=== PATIENT | female | born 1970 | race American Indian/Alaskan Native ===

== ENCOUNTER 2016-09-27 18:33 | Observation (INO) | payer OTHER ==
[2016-09-27] MEDS ORDERED: Aspirin 81 MG Tab.Chew PO ONE (18:40)
--- NOTE | 2016-09-27 19:01 | EDM.PDOC ---
ED HPI GENERAL MEDICAL PROBLEM - General Chief Complaint: Chest Pain Stated Complaint: CHEST PAIN Time Seen by Provider: 09/27/16 18:57 - History of Present Illness INITIAL COMMENTS - FREE TEXT/NARRATIVE: HISTORY AND PHYSICAL: History of present illness: The [id number] white female presents with chest pain he said approximately 3 PM the 2 components one is sharp it was tightness there's been no clear associated shortness breath palpitations nausea, diaphoresis or other concern she denies any known cardiac history she does smoke 3-6 cigarettes per day she denies drug abuse denies any compelling family history Review of systems: As per history of present illness and below otherwise all systems reviewed and negative. Past medical history: As per history of present illness and as reviewed below otherwise noncontributory. Surgical history: As per history of present illness and as reviewed below otherwise noncontributory. Social history: No reported history of drug or alcohol abuse. Family history: As per history of present illness and as reviewed below otherwise noncontributory. Physical exam: HEENT: Atraumatic, normocephalic, pupils reactive, negative for conjunctival pallor or scleral icterus, mucous membranes moist, throat clear, neck supple, nontender, trachea midline. Lungs: Clear to auscultation, breath sounds equal bilaterally, chest nontender. Heart: S1S2, regular, negative for clicks, rubs, or JVD. Abdomen: Soft, nondistended, nontender. Negative for masses or hepatosplenomegaly. Negative for costovertebral tenderness. Pelvis: Stable nontender. Genitourinary: Deferred. Rectal: Deferred. Extremities: Atraumatic, negative for cords or calf pain. Neurovascular unremarkable. Neuro: Awake, alert, oriented. Cranial nerves II through XII unremarkable. Cerebellum unremarkable. Motor and sensory unremarkable throughout. Exam nonfocal. Diagnostics: CBC CMP troponin PT INR chest x-ray EKG Therapeutics: IV O2 monitor aspirin 324 mg by mouth Impression: #1 chest pain Definitive disposition and diagnosis as appropriate pending reevaluation and review of above. Midsternal chest Pain Score (Numeric/FACES): 7 - Related Data Allergies Allergy/AdvReac Type Severity Reaction Status Date / Time banana Allergy Chest Verified 09/27/16 18:45 Tightness penicillin Allergy Respiratory Verified 09/27/16 18:45 Distress bleach Allergy Itching Uncoded 09/27/16 18:45 chlorine Allergy Itching Uncoded 09/27/16 18:45 Home Meds: Home Meds Cetirizine [ZyrTEC] 10 mg PO DAILY 03/31/15 [History] RABEprazole [Aciphex] 20 mg PO DAILY 03/31/15 [History] Past Medical History HEENT History: Reports: Other (see below) Other HEENT History: Esophageal spasm Cardiovascular History: Reports: None Respiratory History: Reports: None Gastrointestinal History: Reports: GERD Genitourinary History: Reports: None 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 Other OB/BYN History: previous Musculoskeletal History: Reports: None Neurological History: Reports: None Psychiatric History: Reports: None Endocrine/Metabolic History: Reports: None Hematologic History: Reports: None Immunologic History: Reports: None Oncologic (Cancer) History: Reports: None Dermatologic History: Reports: None - Infectious Disease History Infectious Disease History: Reports: None - Past Surgical History Head Surgeries/Procedures: Reports: None HEENT Surgical History: Reports: None Cardiovascular Surgical History: Reports: None Respiratory Surgical History: Reports: None GI Surgical History: Reports: Cholecystectomy Female Surgical History: Reports: None Endocrine Surgical History: Reports: None Neurological Surgical History: Reports: None Musculoskeletal Surgical History: Reports: None Oncologic Surgical History: Reports: None Dermatological Surgical History: Reports: None Social & Family History - Family History Family Medical History: Noncontributory - Tobacco Use Smoking Status *Q: Current Every Day Smoker Years of Tobacco use: 20 Packs/Tins Daily: 0.5 - Caffeine Use Caffeine Use: Reports: None - Recreational Drug Use Recreational Drug Use: No ED ROS GENERAL - Review of Systems Review Of Systems: ROS reveals no pertinent complaints other than HPI. ED EXAM, GENERAL - Physical Exam Exam: See Below Course - Vital Signs Last Recorded V/S: Last Vital Signs Temp 36.4 C 09/27/16 18:42 Pulse 78 09/27/16 19:02 Resp 18 09/27/16 19:02 BP 166/78 H 09/27/16 19:02 Pulse Ox 99 09/27/16 19:02 - Orders/Labs/Meds Orders: Active Orders 24 hr Category Date Time Status EKG Documentation Completion [RC] STAT Care 09/27/16 18:40 Active Chest 1V Frontal [CR] Stat Exams 09/27/16 18:40 Taken Labs: Laboratory Tests 09/27/16 09/27/16 09/27/16 Range/Units 18:48 18:48 18:48 WBC 9.06 (4.0-11.0) K/uL RBC 4.78 (4.30-5.90) M/uL Hgb 14.5 (12.0-16.0) g/dL Hct 44.1 (36.0-46.0) % MCV 92.3 (80.0-98.0) fL MCH 30.3 (27.0-32.0) pg MCHC 32.9 (31.0-37.0) g/dL RDW Std Deviation 45.9 (28.0-62.0) fl RDW Coeff of Chandana 14 (11.0-15.0) % Plt Count 227 (150-400) K/uL MPV 10.90 (7.40-12.00) fL Neut % (Auto) 56.5 (48.0-80.0) % Lymph % (Auto) 34.1 (16.0-40.0) % Grimes % (Auto) 4.9 (0.0-15.0) % Eos % (Auto) 4.1 (0.0-7.0) % Baso % (Auto) 0.4 (0.0-1.5) % Neut # (Auto) 5.1 (1.4-5.7) K/uL Lymph # (Auto) 3.1 H (0.6-2.4) K/uL Grimes # (Auto) 0.4 (0.0-0.8) K/uL Eos # (Auto) 0.4 (0.0-0.7) K/uL Baso # (Auto) 0.0 (0.0-0.1) K/uL Nucleated RBC % 0.0 /100WBC Nucleated RBCs # 0 K/uL Sodium 144 (136-146) mmol/L Potassium 4.5 (3.5-5.1) mmol/L Chloride 110 (98-110) mmol/L Carbon Dioxide 25 (21-31) mmol/L BUN 9 (6.0-23.0) mg/dL Creatinine 0.8 (0.6-1.5) mg/dL Est Cr Clr Drug Dosing 77.38 mL/min Estimated GFR (MDRD) > 60.0 ml/min Glucose 99 (60-110) mg/dL Calcium 9.0 (8.8-10.8) mg/dL Total Bilirubin 0.6 (0.1-1.5) mg/dL AST 13 (5-40) IU/L ALT 18 (8-54) IU/L Alkaline Phosphatase 92 (40-150) Troponin I < 0.10 (0.0-0.29) NG/ML Total Protein 6.7 (6.0-8.0) g/dL Albumin 3.6 (3.5-5.0) g/dL Globulin 3.1 (2.0-3.5) g/dL Albumin/Globulin Ratio 1.2 L (1.3-2.8) Meds: Medications Discontinued Medications Generic Name Dose Route Start Last Admin Trade Name Freq PRN Reason Stop Dose Admin Aspirin 324 mg 09/27/16 18:40 09/27/16 19:06 Aspirin PO 09/27/16 18:41 324 mg ONETIME ONE Administration Departure - Departure Time of Disposition: 19:38 Disposition: Refer to Observation Condition: good Clinical Impression: Chest pain Forms: ED Department Discharge
[2016-09-27 19:16] LABS: CHLORIDE,CL 110 mmol/L (98-110); SODIUM,NA 144 mmol/L (136-146)
--- NOTE | 2016-09-27 20:37 | PCM.HP ---
H&P History of Present Illness - General Date of Service: 09/27/16 Admit Problem/Dx: Admission Diagnosis/Problem Admission Diagnosis/Problem Chest pain Source of Information: Patient History Limitations: Reports: No limitations - History of Present Illness Onset of Symptoms: Reports: today, sudden Symptom Onset Date: 09/27/16 Duration of Symptoms: Reports: Hour(s): Location: Reports: chest (describes both a tight and stabbing feelin center chest radiating to back. Worse with inspiration, no dyspnea, sl nausea, weak, dizzy feeling no palpitatons) Quality: Reports: Pressure, Stabbing Severity: severe Worsens with: Reports: Breathing Context: Reports: other (out of the blue) Associated Symptoms: Reports: weakness Midsternal chest Pain Score (Numeric/FACES): 7 - Related Data Allergies/Adverse Reactions: Allergies Allergy/AdvReac Type Severity Reaction Status Date / Time banana Allergy Chest Verified 09/27/16 18:45 Tightness penicillin Allergy Respiratory Verified 09/27/16 18:45 Distress bleach Allergy Itching Uncoded 09/27/16 18:45 chlorine Allergy Itching Uncoded 09/27/16 18:45 Home Medications: Home Meds Cetirizine [ZyrTEC] 10 mg PO DAILY 03/31/15 [History] RABEprazole [Aciphex] 20 mg PO DAILY 03/31/15 [History] Past Medical History HEENT History: Reports: Other (see below) Other HEENT History: Esophageal spasm Cardiovascular History: Reports: None, Hypertension, Other (see below) Other Cardiovascular History: tachycardia ?PSVT Was on metoprolol til fall for hypertension Respiratory History: Reports: None Gastrointestinal History: Reports: GERD Genitourinary History: Reports: None CORPORATE TREASURER 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 Now has epi-pen which she has not used Oncologic (Cancer) History: Reports: None Dermatologic History: Reports: None - Infectious Disease History Infectious Disease History: Reports: None - Past Surgical History Head Surgeries/Procedures: Reports: None HEENT Surgical History: Reports: None Cardiovascular Surgical History: Reports: None Respiratory Surgical History: Reports: None GI Surgical History: Reports: Cholecystectomy Female Surgical History: Reports: None Endocrine Surgical History: Reports: None Neurological Surgical History: Reports: None Musculoskeletal Surgical History: Reports: None Oncologic Surgical History: Reports: None Dermatological Surgical History: Reports: None Social & Family History - Family History Cardiac: Reports: Bypass, Other (see below) Other Cardiac Family History: mother CABG age 49 Other Neurological Family History: sister brain tumor (benign) Endocrine/Metabolic: Reports: Other (see below) Other Endocrine/Metabolic Family History: sister thyroid cancer Hematologic: Reports: Other (see below) (father leukemia 50ies) - Tobacco Use Smoking Status *Q: Current Every Day Smoker Years of Tobacco use: 20 Packs/Tins Daily: 0.5 - Caffeine Use Caffeine Use: Reports: None - Recreational Drug Use Recreational Drug Use: No H&P Review of Systems - Review of Systems: Review Of Systems: See Below General: Reports: no symptoms, weight loss HEENT: Reports: no symptoms Pulmonary: Reports: No Symptoms Cardiovascular: Reports: chest pain Gastrointestinal: Reports: No symptoms Genitourinary: Reports: no symptoms Musculoskeletal: Reports: no symptoms Skin: Reports: no symptoms Psychiatric: Reports: no symptoms Neurological: Reports: No Symptoms Hematologic/Lymphatic: Reports: no symptoms Immunologic: Reports: no symptoms (angioedema), other Exam - Exam Exam: See Below - Vital Signs Vital Signs: Last Vital Signs Temp 36.4 C 09/27/16 18:42 Pulse 78 09/27/16 19:02 Resp 18 09/27/16 19:02 BP 166/78 H 09/27/16 19:02 Pulse Ox 99 09/27/16 19:02 Weight: 108.862 kg - Exam Quality Assessment: other (youthful,obese) General: alert, oriented HEENT: Conjunctiva clear Neck: 2+ carotid pulse wo bruit Lungs: Clear to auscultation Cardiovascular: regular rate, other (no costochondral or intrascapular tenderness) Abdomen: normal bowel sounds, soft (Female) Exam: Deferred Rectal (Female) Exam: Deferred Back Exam: normal inspection Extremities: other (puffy but non-pitting, no tenderness) Skin: warm Neurological: normal speech Neuro Extensive - Mental Status: alert, oriented x3 Neuro Extensive - Motor, Sensory, Reflexes: CN II-XII intact, other (not formally tested) DTR: 0: bicep (R) Psychiatric: normal affect, normal mood - Patient Data Result Diagrams: 09/27/16 18:48 09/27/16 18:48 *Q Meaningful Use (ADM) - VTE *Q VTE Criteria *Q: - Stroke *Q Stroke Criteria *Q: - AMI *Q AMI Criteria *Q: - Problem List (1) Chest pain SNOMED Code(s): 36495641 ICD Code: R07.9 - CHEST PAIN, UNSPECIFIED Status: Acute Current Visit: Yes Problem List Initiated/Reviewed/Updated: Yes Assessment/Plan Comment:: chest pain possibly representing angina in view of concomitant symptoms Risk factors family history unknown lipid status, history hypertension monitor check further labs GERd. possible esophageal source in view of respiratory worsening and radiation to back angioedema continue zyrtec
[2016-09-27] MEDS ORDERED: Cetirizine 10 MG Tab PO SCH (21:00)
[2016-09-27] MEDS: Metoprolol Tartrate 25 MG Tab PO SCH (22:15)
[2016-09-27] MEDS: Acetaminophen 325 MG Tab PO PRN (22:15)
[2016-09-28] MEDS: Acetaminophen 325 MG Tab PO PRN (04:06)
[2016-09-28] MEDS ORDERED: Aspirin 81 MG Tab.Chew PO SCH (09:00)
[2016-09-28] MEDS: Metoprolol Tartrate 25 MG Tab PO SCH (09:24)
[2016-09-28] MEDS ORDERED: Pantoprazole 40 MG Tab.CR PO SCH (10:00)
[2016-09-28 12:10] VITALS: BP 141/73
--- NOTE | 2016-09-28 14:18 | PCM.DCSUM1 ---
Discharge Summary - Hospital Course Free Text/Narrative:: admittd with non-exertional, somewhat atypical CP but suggestive concomitant symptoms Troponin stayed normal. Found to have unfavorable lipid profile with HDL of 2B Will f/u with PCP Elvira Deutsch in [place] for possible Gi referral - Discharge Data Discharge Date: 09/28/16 Discharge Disposition: Home, Self-Care 01 Condition: Fair - Discharge Diagnosis/Problem(s) (1) Chest pain SNOMED Code(s): 17619812 ICD Code: R07.9 - CHEST PAIN, UNSPECIFIED Status: Acute Current Visit: Yes - Patient Instructions Diet: Usual Diet as Tolerated Activity: As Tolerated - Discharge Plan Home Medications: Home Meds Cetirizine [ZyrTEC] 10 mg PO DAILY 03/31/15 [History] RABEprazole [Aciphex] 20 mg PO DAILY 03/31/15 [History] diphenhydrAMINE HCl [Benadryl] 25 mg PO BID PRN 09/27/16 [History] Forms: ED Department Discharge Referrals: PCP,None [Primary Care Provider] - (elvira deutsch) - Patient Data Vitals - Most Recent: Last Vital Signs Temp 36.6 C 09/28/16 12:09 Pulse 60 09/28/16 12:09 Resp 14 09/28/16 12:09 BP 141/73 H 09/28/16 12:09 Pulse Ox 96 09/28/16 12:09 Weight - Most Recent: 112.4 kg I&O - Last 24 hours: Intake & Output 09/27/16 09/28/16 09/28/16 22:59 06:59 14:59 Intake Total 320 Output Total 850 Balance -530 Lab Results - Last 24 hrs: Laboratory Results - last 24 hr 09/27/16 09/27/16 09/28/16 Range/Units 23:57 23:57 07:52 Troponin I < 0.10 < 0.10 (0.0-0.29) NG/ML Triglycerides 224 H (10-190) mg/dL Cholesterol 194 (131-240) mg/dL LDL Cholesterol, Calc 121 (60-180) mg/dL VLDL Cholesterol 45 (5-55) mg/dL HDL Cholesterol 28 L (40-80) mg/dL Cholesterol/HDL Ratio 6.9 H (3.3-6.0) TSH 3rd Generation 1.45 (0.47-5.0) uIU/mL Med Orders - Current: Current Medications Acetaminophen (Tylenol) 650 mg PO Q6H PRN PRN Reason: Pain Last Admin: 09/28/16 04:06 Dose: 650 mg Aspirin (Aspirin) 81 mg PO DAILY [facility] Last Admin: 09/28/16 09:23 Dose: 81 mg Cetirizine HCl (Zyrtec) 10 mg PO BEDTIME [facility] Last Admin: 09/27/16 22:17 Dose: Not Given Metoprolol Tartrate (Lopressor) 25 mg PO Q12HR [facility] Last Admin: 09/28/16 09:24 Dose: 25 mg Pantoprazole Sodium (Protonix) 40 mg PO ACBREAKFAST [facility] Last Admin: 09/28/16 10:03 Dose: 40 mg Discontinued Medications Aspirin (Aspirin) 324 mg PO ONETIME ONE Stop: 09/27/16 18:41 Last Admin: 09/27/16 19:06 Dose: 324 mg Pantoprazole Sodium (Protonix) 40 mg PO ACBREAKFAST [facility] *Q Meaningful Use (DIS) - VTE *Q VTE Criteria *Q: - Stroke *Q Stroke Criteria *Q: - AMI *Q AMI Criteria *Q:
[2016-09-29] MEDS ORDERED: Pantoprazole 40 MG Tab.CR PO SCH (07:30)
--- NOTE | 2016-09-29 18:00 | CR ---
EXAM DATE: 09/27/16 PATIENT'S AGE: 46 Patient: OMERO FELIX Facility: [place], [place] Site . Site : 1970 Study: XRay Chest [id number]/1/2017 6:58:42 PM Ordering Physician: Doctor Vasquez Final Report: Indication: Chest pain Technique: Chest 1 view Comparison: . Findings/Impression: Cardiovascular and mediastinum: Stable cardiomediastinal silhouette. Lungs and pleural space: No consolidation or pleural effusions. An irregular opacity again seen in the medial right upper lung, likely related to the anterior 1st rib. Bones and soft tissues: No significant change. Dictated by Shabbir Sofia MD @ 09/27/2016 7:06:01 PM Dictated by: Shabbir Sofia MD @ 09/27/2016 19:06:07 (Electronic Signature) Report Signed by Proxy and Original Signed Document filed in the Medical Record. KRYSTAL
== END 2016-09-28 14:50 | disposition home or self-care (01) ==
LOC: MW.ED 18:33 → MW.MS 19:39
PROVIDERS: ADMIT Internal Medicine; ATTEND Internal Medicine
DX: R07.9 Chest pain, unspecified (principal); I10 Essential (primary) hypertension; K21.9 Gastro-esophageal reflux disease without esophagitis; Z79.82 Long term (current) use of aspirin; Z79.899 Other long term (current) drug therapy; Z88.0 Allergy status to penicillin; Z91.018 Allergy to other foods; Z91.09 Other allergy status, other than to drugs and biological substances; Z90.49 Acquired absence of other specified parts of digestive tract; F17.210 Nicotine dependence, cigarettes, uncomplicated
CPT/HCPCS: 36415; 71010; 80053; 80061; 84443; 84484; 85025; 93005; 99285; A9270; G0378

== ENCOUNTER 2017-06-15 14:33 | Emergency (ER) | payer OTHER ==
[2017-06-15 15:52] LABS: CHLORIDE,CL 109 mmol/L (98-110); SODIUM,NA 141 mmol/L (136-146)
--- NOTE | 2017-06-15 16:11 | CT ---
EXAMINATION: Non contrast CT head. Coronal and sagittal reformats. HISTORY: Pain FINDINGS: No evidence of intra or extra axial hemorrhage, mass, midline shift, hydrocephalus or edema. No hyp oattenuation changes in the major vascular territories to suggest acute infarct. No abnormal intracr anial calcifications are detected. No evidence of substantial vascular calcifications. There is righ tward deviation of the nasal septum. Paranasal sinuses and mastoid air cells are well aerated without substantial findings. Pituitary fos sa appears unremarkable. Calvarium is intact. No evidence of skull fracture. IMPRESSION: 1. No acute intracranial findings.
--- NOTE | 2017-06-15 16:14 | CT ---
EXAMINATION: CT cervical spine HISTORY: Pain COMPARISON: None TECHNIQUE: Axial CT images obtained through the cervical spine without contrast. Coronal and sagittal reconstructions obtained. FINDINGS: There is straightening of the normal cervical lordosis. The vertebral body heights and disc spaces appear maintained. No fracture or acute osseous abnormality. Mild marginal osteophytes. Parav ertebral soft tissues appear normal. The lung apices are clear. IMPRESSION: Mild degenerative changes without acute findings.
[2017-06-15] MEDS ORDERED: Hydrochlorothiazide 25 MG Tab PO ONE (16:25)
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
[2017-06-15 16:56] VITALS: BP 188/107
== END 2017-06-15 16:55 | disposition home or self-care (01) ==
LOC: MW.ED 14:33
DX: S13.4XXA Sprain of ligaments of cervical spine, initial encounter (principal); I10 Essential (primary) hypertension; F17.210 Nicotine dependence, cigarettes, uncomplicated; Z88.0 Allergy status to penicillin; Z88.8 Allergy status to other drugs, medicaments and biological substances; Z79.899 Other long term (current) drug therapy; V59.40XA Driver of pick-up truck or van injured in collision with unspecified motor vehicles in traffic accident, initial encounter
CPT/HCPCS: 36415; 70450; 72125; 80053; 85025; 99284; A9270